=== PATIENT | female | born 2005 | race Caucasian/White ===

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

== ENCOUNTER → 2025-06-01 15:15 | Outpatient (BNVA) | payer OTHER, SELFPAY | PROVIDERS: PCP Family Medicine; Visit Provider Nurse Practitioner | DX: E55.9 Vitamin D deficiency, unspecified (principal); R53.83 Other fatigue; M25.50 Pain in unspecified joint; G43.909 Migraine, unspecified, not intractable, without status migrainosus | CPT/HCPCS: 80053; 82306; 82607; 83735; 84425; 84443; 85025; 85651; 86140 ==

== ENCOUNTER → 2025-06-03 16:13 | Outpatient (BNVA) | payer OTHER, SELFPAY | PROVIDERS: PCP Family Medicine | DX: M25.50 Pain in unspecified joint (principal); E55.9 Vitamin D deficiency, unspecified; R53.83 Other fatigue; G43.909 Migraine, unspecified, not intractable, without status migrainosus | CPT/HCPCS: 86038 ==

== ENCOUNTER → 2025-10-03 09:19 | Outpatient (BNVA) | payer OTHER, SELFPAY | PROVIDERS: PCP Family Medicine; Visit Provider Family Medicine | DX: E03.9 Hypothyroidism, unspecified (principal); F41.9 Anxiety disorder, unspecified; R07.9 Chest pain, unspecified; K29.70 Gastritis, unspecified, without bleeding; M79.10 Myalgia, unspecified site; G43.909 Migraine, unspecified, not intractable, without status migrainosus; R23.9 Unspecified skin changes; R53.83 Other fatigue; R23.2 Flushing | CPT/HCPCS: 80053; 82607; 82672; 82785; 83001; 83002; 84144; 84403; 84436; 84443; 84481; 85025; 86001; 86003 ==